=== PATIENT | female | born 1940 | race Caucasian/White ===

== ENCOUNTER 2016-06-24 11:50 | Emergency (ER) | payer MEDICARE ==
[2016-06-24 12:24] LABS: BASO % 0.3 % (0.1-1.2); EOS # 0.2 10_X3_uL (0.0-0.4); EOS % 3.2 % (0.7-5.8); GRAN % 67.5 % (34.0-71.1); HEMATOCRIT 53.6 % (34-45); HEMOGLOBIN 17.6 g/dL (11.2-15.7); LYMPH # 1.2 10_X3_uL (1.2-3.7); LYMPH % 20.3 % (19.3-51.7); MEAN CORPUSCULAR HEMOGLOBIN 30.4 pg (27.0-33.0); MEAN CORPUSCULAR HGB CONC 32.8 g/dL (32.0-36.0); MEAN CORPUSCULAR VOLUME 92.6 fL (79-95); MONO # 0.5 10_X3_uL (0.2-0.9); MONO % 8.7 % (4.7-12.5); PLATELET COUNT 224 x10_3/uL (182-369); RED BLOOD COUNT 5.79 x10_6/uL (3.9-5.2); RED CELL DISTRIBUTION WIDTH 13.7 % (11.7-14.4)
[2016-06-24 12:33] LABS: ARTERIAL BLD GAS O2 SATURATION 96.9 % (94-98); ARTERIAL BLOOD GAS BASE EXCESS 4.7 mmol/L (-2.0-3.0); ARTERIAL BLOOD GAS HCO3 31.4 mmol/L (22-26); ARTERIAL BLOOD GAS PCO2 56.3 mmHg (32-45); ARTERIAL BLOOD GAS pH 7.37 (7.35-7.45)
[2016-06-24 12:43] LABS: BLOOD UREA NITROGEN 17 mg/dL (7-18); CALCIUM 9.3 mg/dL (8.7-10.7); CARBON DIOXIDE 31 mmol/L (21-32); CREATINE KINASE 56 U/L (21-215); CREATININE 0.9 mg/dL (0.6-1.3); GLUCOSE,RANDOM 85 mg/dL (70-99); POTASSIUM 4.5 mmol/L (3.5-5.1); SODIUM 141 mmol/L (136-145)
== END 2016-06-24 13:36 | disposition short-term general hospital (02) ==
LOC: ER 11:50
PROVIDERS: Family Medicine
DX: G45.9 Transient cerebral ischemic attack, unspecified (principal); J44.9 Chronic obstructive pulmonary disease, unspecified; R47.02 Dysphasia
CPT/HCPCS: 36415; 36600; 70450; 80048; 82550; 82553; 82803; 85025; 99070; 99283; 99285-25